=== PATIENT | female | born 1955 | race Caucasian/White ===

== ENCOUNTER → 2017-03-08 12:35 | Outpatient (CLI) | payer BC ==
[2015-02-17 06:28] VITALS: BMI 37.0
[~2017-03-08 12:35] MED LIST: CELEXA40 MG PO; LIPITOR40 MG PO; MAXZIDE 75/501 TAB PO; TOPAMAX50 MG PO
== END | disposition home or self-care (01) ==
LOC: D.CT 12:35
DX: R19.00 Intra-abdominal and pelvic swelling, mass and lump, unspecified site (principal)

== ENCOUNTER → 2017-07-06 08:50 | Outpatient (CLI) | payer BC ==
[2015-02-17 06:28] VITALS: BMI 37.0
--- NOTE | 2017-07-08 11:12 | EC ---
PATIENT:LOLA TURCIOS DATE OF SERVICE: 07/06/17 SEX: F MEDICAL RECORD: [id number] DATE OF : [birth year] LOCATION:D.RT AGE OF PATIENT: 61 ADMISSION DATE: 07/06/17 REFERRING PHYSICIAN: INTERPRETING PHYSICIAN: JULIUS SANDOVAL MD ECHOCARDIOGRAM REPORT ECHO CHARGES 4 ECHO COMPLETE CLINICAL DIAGNOSIS: DYSPNEA ECHOCARDIOGRAPHIC MEASUREMENTS (adult normal given) AC root (d.<3.7cm) 3.0 cm LV Septum d (<1.2 cm> 1.4 cm Valve Excursion 1.8 cm LV Septum (systole) 2.0 cm Left Atria (s.<4.0cm> 3.9 cm LVPW d(<1.2cm) 1.3 cm RV (d.<2.3cm) 2.7 cm LVPW (sytole) 1.9 cm LV diastole(<5.6CM) 3.8 cm MV E-F(>70mm/sec) cm LV systole 2.3 cm LVOT Diameter 2.0 cm MV exc.(>10mm) cm Est.ejection fraction (50-75%) % Pericardial Effusion N DOPPLER: LVIT cm/sec A 84.0 cm/sec E 63.0 cm/sec LA cm/sec RVSP 29.0 mmHg LVOT 150 cm/sec AOP1/2T 341.0m/s Asc. Ao 226 cm/sec RVOT 87.0 cm/sec RA cm/sec PA 118 cm/sec AV Gradient Peak 21.0 mmHg AV Mean 10.2 mmHg AV Area 1.9 cm MV Gradient Peak 3.6 mmHg MV Mean 1.2 mmHg MV Area cm COMMENTS: Solar Mechanical Engineer: 1 REBECCA CANO Alignment Technician: 2 Dr. Aceves TAPE# PACS DATE OF SERVICE: 07/07/2017 Echocardiogram FINDINGS: 1. Left ventricular chamber size is within normal limits. Left ventricular systolic function is normal. Overall ejection fraction estimated at 60%. 2. Left atrium, right atrium, and right ventricular chamber sizes are within normal limits. 3. Valvular structures have normal structure and motion. ECHOCARDIOGRAM REPORT [id number] LOLA TURCIOS 4. Doppler interrogation only reveals trace aortic insufficiency, trace tricuspid regurgitation, neither of which are hemodynamically significant. 5. No evidence of pericardial effusion or left ventricular thrombus. TRANSINT:[id number] Voice Confirmation ID: [id number] DOCUMENT ID: [id number] JULIUS SANDOVAL MD at 1112 CC: [id number] DICTATION DATE: 07/07/17 1248 RESTUARANT CREW WORKER: 07/07/171912 DEP CLI 07/06/17 [facility] [address] [id number]
== END | disposition home or self-care (01) ==
LOC: D.RT 08:50
DX: R06.00 Dyspnea, unspecified (principal)

== ENCOUNTER → 2017-09-09 08:59 | Outpatient (CLI) | payer BC ==
[2015-02-17 06:28] VITALS: BMI 37.0
[2017-09-09 09:43] LABS: ALBUMIN 3.7 g/dL (3.4-5.0); BILIRUBIN - DIRECT 0.03 mg/dL (0.00-0.30); BILIRUBIN - INDIRECT 0.35 mg/dL (0.00-1.00); BILIRUBIN - TOTAL 0.38 mg/dL (0.2-1.3); PROTEIN - SERUM 7.4 g/dL (6.4-8.2)
== END | disposition home or self-care (01) ==
LOC: D.US 08:59
PROVIDERS: Internal Medicine Gastroenterology
DX: K76.0 Fatty (change of) liver, not elsewhere classified (principal)

== ENCOUNTER → 2018-08-17 08:57 | Outpatient (CLI) | payer OTHER ==
[2015-02-17 06:28] VITALS: BMI 37.0
[2018-08-17 10:11] LABS: BILIRUBIN - INDIRECT 0.19 mg/dL (0.00-1.00); BILIRUBIN - TOTAL 0.24 mg/dL (0.2-1.3); PROTEIN - SERUM 7.6 g/dL (6.4-8.2)
[2018-08-17 10:23] LABS: BILIRUBIN - DIRECT 0.05 mg/dL (0.00-0.30)
== END | disposition home or self-care (01) ==
LOC: D.US 08:57
PROVIDERS: Internal Medicine Gastroenterology
DX: K76.0 Fatty (change of) liver, not elsewhere classified (principal)

== ENCOUNTER → 2019-01-22 06:03 | Day surgery (SDC) | payer OTHER, MEDICARE ==
[~2019-01-22] VITALS: Ht 162.6 cm; Wt 97.7 kg
[~2019-01-22 06:03] MED LIST changes: +PEPCID AC20 MG PO; +THIAZIDE; +ZETIA10 MG; +ZOCOR40 MG PO
[2019-01-22 07:10] LABS: HEMATOCRIT 43.5 % (36.0-48.0); HEMOGLOBIN 15.1 g/dL (12-16); MCH 30.1 pg (26.0-34.0); MCHC 34.7 g/dL (31.0-37.0); MCV 86.7 fL (80.0-100.0); MEAN PLATELET VOLUME 10.6 fL (7.4-10.4); RBC 5.02 10x6/uL (4.00-5.40); WBC 5.8 10x3/uL (4.8-10.8)
[2019-01-22 07:33] VITALS: BP 139/84; Ht 162.6 cm; Wt 97.7 kg
--- NOTE | 2019-01-24 14:22 | OP ---
PATIENT NAME: LOLA TURCIOS MEDICAL RECORD: [id number] :51 LOCATION:D.[facility] ADMISSION DATE: SURGEON: ERICK GARCIA DO DATE OF OPERATION: 01/22/2019 PROCEDURE: Colonoscopy with polypectomy and biopsies. INDICATIONS FOR PROCEDURE: Family history of colon cancer, personal history of colon polyps, diverticulosis. SCOPE: Olympus video pediatric colonoscope. MEDICATIONS: Propofol 700 mg IV per anesthesia. WITHDRAWAL TIME: 16 minutes. ESTIMATED BLOOD LOSS: Minimal. COMPLICATIONS: None. FINDINGS AND DESCRIPTION OF PROCEDURE: Informed consent was given. The patient was made comfortable with the above medication. After reaching an adequate level of sedation by slow IV push, the patient was placed on her left side. A digital rectal examination was performed and it was normal. The endoscope was then advanced under direct visualization through the rectum to the cecum, confirmed by the presence of the appendiceal orifice and ileocecal valve. The endoscope was slowly withdrawn and mucosa was carefully examined. The prep quality was fair. Difficulty of procedure was moderate. The patient required mild changes in position and left lower quadrant pressure to facilitate passage of the endoscope all the way to the cecum. There were 6 polyps seen on today's examination. Two of these were located in the ascending colon. They were benign appearing and sessile and ranged in size from 3-5 mm in diameter. They were both removed using a hot forceps. In the sigmoid colon, there were four separate benign-appearing polyps, which ranged in size from 3-5 mm in diameter. They were all removed using a hot snare in 1 piece and completely retrieved. In the ascending colon, there appeared to be a subepithelial lesion versus a lipoma. A single cold forceps biopsy was taken from the surface to rule out the presence of adenomatous tissue. There was evidence of mild diverticulosis involving the descending and sigmoid colon. Retroflexion was performed in the rectum with visualization of grade I internal hemorrhoids without active bleeding. The endoscope was withdrawn from the patient. The patient tolerated the procedure well and there were no complications. IMPRESSIONS: 1. Six polyps as described above, removed using a combination of a hot snare and hot forceps. 2. Ascending colon subepithelial lesion versus a lipoma. Biopsies pending. 3. Mild diverticulosis of the descending and sigmoid colon. 4. Internal hemorrhoids without bleeding. PLAN AND RECOMMENDATIONS: 1. Discharge home when recovery parameters are met. 2. Follow up biopsy specimen results. 3. High fiber diet. 4. Continue current medications. OPERATIVE REPORT [id number] LOLA TURCIOS 5. Recall colonoscopy will be dependent on results of biopsies. I anticipate this being 2-3 years. The subepithelial lesion site will need closer followup if there is adenomatous tissue present. TRANSINT:[id number] Voice Confirmation ID: [id number] DOCUMENT ID: [id number] ERICK GARCIA DO at 1422 CC: [id number] DICTATION DATE: 01/22/19913 TOOL LIAISON: 01/22/19 1004 [facility] 01/22/19 [facility] [address] [place] [address]
== END | disposition home or self-care (01) ==
LOC: D.OPS 06:03
PROVIDERS: Anesthesiology; ATTEND Internal Medicine Gastroenterology
DX: K57.30 Diverticulosis of large intestine without perforation or abscess without bleeding (principal); K64.0 First degree hemorrhoids; Z86.010 Personal history of colon polyps; Z80.0 Family history of malignant neoplasm of digestive organs; K63.5 Polyp of colon; D12.2 Benign neoplasm of ascending colon; Z01.812 Encounter for preprocedural laboratory examination

== ENCOUNTER 2019-04-07 21:06 | Inpatient (IN) | payer MEDICARE ==
[~2019-04-07] VITALS: Ht 162.6 cm; Wt 102.1 kg
[2019-04-07 21:36] LABS: HEMATOCRIT 42.8 % (36.0-48.0); HEMOGLOBIN 16.7 g/dL (12-16); MCH 32.8 pg (26.0-34.0); MCV 84.1 fL (80.0-100.0); PLATELET COUNT 149 10x3/uL (130-400); RBC 5.09 10x6/uL (4.00-5.40); RDW 12.9 % (11.5-14.5); WBC 11.1 10x3/uL (4.8-10.8)
[2019-04-07 21:38] LABS: BILIRUBIN - TOTAL 1.21 mg/dL (0.2-1.3); CARBON DIOXIDE 16.1 mmol/L (21.0-32.0); CHLORIDE - SERUM 91 mmol/L (98-107); POTASSIUM - SERUM 3.6 mmol/L (3.5-5.1); SODIUM 125 mmol/L (136-145)
[2019-04-07 21:39] VITALS: BP 149/89
[2019-04-07 21:40] LABS: APTT 31.4 SECONDS (22.8-39.4); INR 0.92 (0.85-1.17); PROTIME 11.9 SECONDS (11.6-15.0)
[2019-04-07 21:41] LABS: ALBUMIN 3.6 g/dL (3.4-5.0); ALKALINE PHOSPHATASE 103 U/L (46-116); ALT (SGPT) 12 U/L (10-68); CALC OSMOLALITY 262 mosm/kg (275-300); CALCIUM 7.1 mg/dL (8.5-10.1); CREATININE - SERUM 0.4 mg/dL (0.6-1.3); GLUCOSE 314 mg/dL (74-106); PROTEIN - SERUM 7.5 g/dL (6.4-8.2); UREA NITROGEN 11 mg/dL (7-18); eGFR NON AFRICAN AMERICAN > 90 mL/min (90-120)
[2019-04-07 21:49] LABS: CKMB 2.8 U/L (0.0-3.6); MAGNESIUM - SERUM 1.8 mg/dL (1.8-2.4)
[2019-04-07 21:52] LABS: LYMPHOCYTES 27 % (15-50); MONOCYTES 4 % (2-11); NEUTROPHILS 69 % (40-80); PLATELET ESTIMATE NORMAL
[2019-04-07 21:53] LABS: CREATINE KINASE 153 UL (21-215); TROPONIN-I < 0.017 ng/mL (0.000-0.060)
--- NOTE | 2019-04-07 22:46 | NUR ---
URINE SPECIMEN SENT TO LAB. OCCULT STOOL OBTAINED, RESULT NEGATIVE.
[2019-04-07 23:00] LABS: APPEARANCE HAZY (CLEAR); COLOR YELLOW (YELLOW); GLUCOSE 1000 mg/dL (NEGATIVE); NITRITE NEGATIVE (NEGATIVE); PROTEIN 2+ mg/dL (NEGATIVE)
[2019-04-07 23:01] LABS: BILIRUBIN NEGATIVE (NEGATIVE); KETONE LARGE mg/dL (NEGATIVE); RED CELLS - URINE 0-5 /hpf (0-5); UROBILINOGEN NORMAL (NORMAL)
[2019-04-07 23:03] VITALS: BP 165/94
--- NOTE | 2019-04-07 23:52 | NUR ---
PT LEFT ED VIA WC FOR CT.
--- NOTE | 2019-04-08 00:49 | NUR ---
PLAN OF CARE DISCUSSED WITH PT AND FAMILY.
--- NOTE | 2019-04-08 01:32 | NUR ---
FSBS 197, HUMULIN REGULAR ORDER CHANGED VERBALLY BY DR AMBROCIO. ORDER CHANGED FROM 15 UNITS SC TO 5 UNITS.
[2019-04-08 01:41] LABS: CHOL - HDL RATIO 16.7 ratio (2.3-4.1); CHOLESTEROL, TOTAL 383 mg/dL (0-200); HDL CHOLESTEROL 23 mg/dL (32-96); TRIGLYCERIDE 4621 mg/dL (30-200)
--- NOTE | 2019-04-08 01:54 | NUR ---
pt arrived to floor by wheelchair, report taken from everardo pruett rn.
[2019-04-08 02:33] VITALS: BP 129/77; BMI 38.7
--- NOTE | 2019-04-08 02:40 | NUR ---
C/O ABDOMINAL PAIN AT 7 WHEN SALES ACCOUNT SPECIALIST SET UP. LATER STATED THE PAIN MEDICATION IS HELPING WITH THE PAIN. ASSESSMENT COMPLETED.
--- NOTE | 2019-04-08 06:16 | NUR ---
PT SITTING UP IN BED WITH EYES OPEN, RR EVEN AND UNLABORED. 196 BLOOD SUGAR TREATED ORDERED PER SLIDING SCALE. PT DENIES FURTHER NEEDS AT THIS TIME. WILL CTM.
--- NOTE | 2019-04-08 07:05 | NUR ---
RECEIVED REPORT FROM [facility]. SHE IS SITTING IN BED ON HER CELL PHONE.CLINIC NURSE INFUSING. IV SITE CLEAR. DENIES ANY CURRENT NEEDS. CL IN REACH.
[2019-04-08 08:31] VITALS: BP 124/70
--- NOTE | 2019-04-08 11:15 | NUR ---
NEW ORDER TO START DILADID MR TEACHER INSTEAD OF MORPHINE DUE TO NAUSEA. SHE DID HAVE DOSE OF ZOFRAN. CL IN REACH RESP EVEN WITHOUT LABOR. AWAKE AND ALERT.
[2019-04-08 12:06] VITALS: BP 129/73
--- NOTE | 2019-04-08 13:26 | MORECARE ---
CASE MANAGEMENT DISCHARGE SUMMARY PATIENT: LOLA TURCIOS UNIT: [id number] ADM DATE: 04/08/19 AGE: 63 : 53 SEX: F ROOM/BED: D.2104 AUTHOR: JUAN PRICE PHYSICIAN: REFERRING PHYSICIAN: MAIKEL RIVERA MD DATE OF SERVICE: 04/08/19 Discharge Plan Patient Name: LOLA TURCIOS [facility] [facility] 1955 Planned Disposition: Home Anticipated Discharge Date: Discharge Date: Expected LOS: Initial Reviewer: ALLI Initial Review Date: 04/08/2019 Generated: 04/08/19 2:26 pm DCPIA - Discharge Planning Initial Assessment Updated by ALLI: Tena Brice on 04/08/19 1:24 pm * Is the patient Alert and Oriented? Yes * How many steps to enter\exit or inside your home? * PCP faro * [facility] * Preadmission Environment Home with Family * ADLs Independent * Equipment CPAP * List name and contact numbers for known caregivers / representatives who currently or will assist patient after discharge: MIKE PTS DAUGHTER * Verbal permission to speak to the caregivers and representatives has been obtained from the patient. Yes * Additional services required to return to the preadmission environment? No * Can the patient safely return to the preadmission environment? Yes * Has this patient been hospitalized within the prior 30 days at any hospital? No Patient Name: LOLA TURCIOS Page [id number] at 1326 All edits/amendments must be made on the electronic document DICTATION DATE: 04/08/19 1325 BUS CLEANER: PRIYA 04/08/19 1325 RPT#: [id number] DC DATE: STATUS: ADM IN [facility] [address] [place] [address] END OF REPORT
--- NOTE | 2019-04-08 13:33 | MORECARE ---
CASE MANAGEMENT DISCHARGE SUMMARY PATIENT: LOLA TURCIOS UNIT: [id number] ADM DATE: 04/08/19 AGE: 63 : 53 SEX: F ROOM/BED: D.2109 AUTHOR: ALBERT,DOC PHYSICIAN: REFERRING PHYSICIAN: MAIKEL RIVERA MD DATE OF SERVICE: 04/08/19 Discharge Plan Patient Name: LOLA TURCIOS Facility: [facility]:[place] : 1955 Planned Disposition: Home Anticipated Discharge Date: Discharge Date: Expected LOS: Initial Reviewer: ALLI Initial Review Date: 04/08/2019 Generated: 04/08/19 2:33 pm Comments DCP- Discharge Planning Updated by [email or web address]: Tena Brice on 04/08/19 12:[address] Patient Name: LOLA TURCIOS Admission Status: ER Accout number: [id number] Admission Date: 04-08-2019 : 1955 Admission Diagnosis: Attending: NICOLE, Current LOS: 1 Anticipated DC Date: Planned Disposition: Home Primary Insurance: [employer] CHOICE PPO MCR ADVANT Discharge Planning Comments: CM SPOKE TO PT AND EDUCATED ON CM ROLE. CMINFORMED PT OF SERVICES AVAILABLE SUCH REHAB, HH , AND DME COMPANIES IF NEEDED. PT HAS CPAP AT HOME THRU [facility]. HER DAUGHTER MIKE ADHIKARI IS A FORMER JAVA APPLICATION DEVELOPER AT THIS HOSPITAL HELP IN HER CARE. PT WILL POSSIBLY NEED NEW DIABETIC SUPPLES AND HELP AT DC. DENIES ANY OTHER NEEDS OR CONCERNS AT THIS TIME. CM WILL CONTINUE TO FOLLOW AND ASSIST. Stonework Supervisor: Tena Brice DCPIA - Discharge Planning Initial Assessment Updated by [email or web address]: Tena Brice on 04/08/19 1:24 pm * Is the patient Alert and Oriented? Yes * How many steps to enter\exit or inside your home? * PCP faro * [facility] * Preadmission Environment Home with Family * ADLs Independent * Equipment CPAP * List name and contact numbers for known caregivers / representatives who currently or will assist patient after discharge: IMKE PTS DAUGHTER * Verbal permission to speak to the caregivers and representatives has been obtained from the patient. Yes * Additional services required to return to the preadmission environment? No * Can the patient safely return to the preadmission environment? Yes * Has this patient been hospitalized within the prior 30 days at any hospital? No Last DP export: 04/08/19 12:26 p Patient Name: LOLA TURCIOS Page [phone] at 1333 All edits/amendments must be made on the electronic document DICTATION DATE: 04/08/191332 PROGRAM DIRECTOR/TRAFFIC DIRECTOR: PRIYA 04/08/19 1333 RPT#: [id number] DC DATE: STATUS: ADM IN [facility] [address] [place] [address] END OF REPORT
[2019-04-08 15:04] VITALS: BP 136/71
--- NOTE | 2019-04-08 18:00 | NUR ---
C/O N/V. SOME CLEAR EMESIS IN BATHROOM. ZOFRAN GIVEN. DAUGHTER AT BEDSIDE. DILADID STRUCTURAL STEEL DETAILER IN USE. TEMP WAS 99.5 WHEN CHECKED. INSULIN GIVEN PER SS ORDERS. CL IN REACH
[2019-04-08 20:00] VITALS: BP 116/70
--- NOTE | 2019-04-08 20:52 | NUR ---
ADMINISTERED ACETAMINOPHEN 650 MG PO FOR PT TEMP OF 102.4
--- NOTE | 2019-04-08 23:41 | NUR ---
TREATED PT BLOOD SUGAR OF 176 ORDERED PER SLIDING SCALE. PT LYING IN BED WITH EYES OPEN, RR EVEN AND UNLABORED. COOL WET TOWEL PROVIDED TO PT TO PLACE ON FOREHEAD. PT DENIES FURTHER NEEDS AT THIS TIME. CALL LIGHT IN REACH. WILL CTM.
[2019-04-09] VITALS: BP 103/67
--- NOTE | 2019-04-09 01:12 | NUR ---
ADMINISTERED ORDERED ACETAMINOPHEN 650 MG PO FOR PT TEMP OF 101.3 F.
--- NOTE | 2019-04-09 02:57 | NUR ---
PT'S TEMP HAS DECREASED TO 98.1 F. ADMINISTERED ORDERED ONDANSETRON IV FOR PT COMPLAINTS OF NAUSEA. DENIES FURTHER NEEDS AT THIS TIME. CALL LIGHT IN REACH. WILL CTM.
[2019-04-09 04:00] VITALS: BP 106/64
--- NOTE | 2019-04-09 04:01 | NUR ---
I have reviewed this patient and I concur with the Shift Assessment completed by the Licensed Practical Nurse today this shift.
[2019-04-09 05:43] LABS: BASOPHILS 0.2 % (0-2); EOSINOPHILS 0.8 % (0-7); HEMATOCRIT 36.8 % (36.0-48.0); IMMATURE GRANULOCYTES 0.3 % (0-5); LYMPHOCYTES 17.7 % (15-50); MCH 29.5 pg (26.0-34.0); MCHC 34.2 g/dL (31.0-37.0); MONOCYTES 9.1 % (2-11); NEUTROPHILS 71.9 % (40-80); RBC 4.27 10x6/uL (4.00-5.40); RDW 13.4 % (11.5-14.5); WBC 9.2 10x3/uL (4.8-10.8)
[2019-04-09 06:12] LABS: HEMOGLOBIN 12.6 g/dL (12-16); MCV 86.2 fL (80.0-100.0); PLATELET COUNT 109 10x3/uL (130-400)
[2019-04-09 06:14] LABS: ALBUMIN 2.9 g/dL (3.4-5.0); ALKALINE PHOSPHATASE 62 U/L (46-116); AMYLASE - SERUM 76 U/L (25-115); BILIRUBIN - TOTAL 0.61 mg/dL (0.2-1.3); CALCIUM 7.9 mg/dL (8.5-10.1); CHLORIDE - SERUM 100 mmol/L (98-107); CREATININE - SERUM 0.5 mg/dL (0.6-1.3); LIPASE 752 U/L (73-393); MAGNESIUM - SERUM 1.6 mg/dL (1.8-2.4); POTASSIUM - SERUM 3.3 mmol/L (3.5-5.1); SODIUM 136 mmol/L (136-145); eGFR NON AFRICAN AMERICAN > 90 mL/min (90-120)
[2019-04-09 06:32] LABS: ALT (SGPT) 23 U/L (10-68); CALC OSMOLALITY 273 mosm/kg (275-300); CARBON DIOXIDE 27.7 mmol/L (21.0-32.0); GLUCOSE 169 mg/dL (74-106); UREA NITROGEN 7 mg/dL (7-18)
--- NOTE | 2019-04-09 07:38 | NUR ---
REPORT RECEIVED. WILL CONTINUE WITH POC. PT CURRENTLY LYING SUPINE. CALL LIGHT W/I REACH. PT IS AAO AND UP AD HERNANDEZ. RR EVEN AND UNLABORED ON 3L 02. NS INFUSING @125ML/HR VIA L.AC PIV. DILUADID ROASTER OPERATOR COMPLETED INFUSION IN SPITE OF 5ML REMAINING IN SYRINGE. PLACED NEW SYRINGE AND WASTED 5ML. DILUADID ROASTER OPERATOR SET TO 0.2MG/Q10MIN/[id number] LOCKOUT. WILL CTM.
[2019-04-09 09:04] VITALS: BP 106/66
[2019-04-09 12:08] VITALS: Ht 162.6 cm; Wt 102.1 kg
--- NOTE | 2019-04-09 17:00 | NUR ---
I have reviewed this patient and I concur with the Shift Assessment completed by the Licensed Practical Nurse today this shift.
[2019-04-09 17:08] VITALS: BP 140/56
[2019-04-09 18:38] VITALS: BP 140/56
--- NOTE | 2019-04-09 19:31 | NUR ---
RECIEVED UP IN BED WITH DTR AT BEDSIDE. ALERT AND ORIENTED AND UP AD HERNANDEZ TO B/R. O2@ 3 LITERS PER N/C IN PLACE. IV TO LEFT AC WITH NS@ 100CC/HR. VOCATIONAL TECHNICAL EDUCATION DIRECTOR WITH DILAUDID IN PLACE. CONT OT MONITOR BLOOD SUGARS. DENIES ANY NEEDS AT THIS TIME.
[2019-04-09 20:00] VITALS: BP 104/64
[2019-04-10] VITALS: BP 116/68
[2019-04-10 04:00] VITALS: BP 119/66
[2019-04-10 06:06] LABS: BASOPHILS 0.1 % (0-2); EOSINOPHILS 0.2 % (0-7); HEMATOCRIT 33.3 % (36.0-48.0); HEMOGLOBIN 11.1 g/dL (12-16); IMMATURE GRANULOCYTES 0.3 % (0-5); LYMPHOCYTES 9.9 % (15-50); MCH 29.1 pg (26.0-34.0); MCHC 33.3 g/dL (31.0-37.0); MCV 87.4 fL (80.0-100.0); MEAN PLATELET VOLUME 10.2 fL (7.4-10.4); MONOCYTES 8.6 % (2-11); NEUTROPHILS 80.9 % (40-80); PLATELET COUNT 106 10x3/uL (130-400); RBC 3.81 10x6/uL (4.00-5.40); RDW 13.4 % (11.5-14.5); WBC 9.2 10x3/uL (4.8-10.8)
[2019-04-10 06:33] LABS: ALBUMIN 2.6 g/dL (3.4-5.0); ALKALINE PHOSPHATASE 55 U/L (46-116); ALT (SGPT) 19 U/L (10-68); BILIRUBIN - TOTAL 0.56 mg/dL (0.2-1.3); CALC OSMOLALITY 270 mosm/kg (275-300); CALCIUM 8.1 mg/dL (8.5-10.1); CARBON DIOXIDE 25.5 mmol/L (21.0-32.0); CHLORIDE - SERUM 99 mmol/L (98-107); CREATININE - SERUM 0.5 mg/dL (0.6-1.3); GLUCOSE 157 mg/dL (74-106); LIPASE 321 U/L (73-393); MAGNESIUM - SERUM 1.7 mg/dL (1.8-2.4); POTASSIUM - SERUM 3.5 mmol/L (3.5-5.1); PROTEIN - SERUM 6.6 g/dL (6.4-8.2); SODIUM 135 mmol/L (136-145); UREA NITROGEN 7 mg/dL (7-18); eGFR NON AFRICAN AMERICAN > 90 mL/min (90-120)
[2019-04-10 06:36] LABS: AMYLASE - SERUM 43 U/L (25-115)
[2019-04-10 08:20] VITALS: BP 98/54
--- NOTE | 2019-04-10 08:23 | NUR ---
ASLEEP AT PRESENT. DILAUDID TELEVISION PRESENTER GOING @0.2 MG. WILL CONTINUE TO MONITOR.
--- NOTE | 2019-04-10 09:38 | NUR ---
LEFT AC IV SITE RED AND LEAKING AROUND SITE, D/C IV WITH CATH TIP INTACT. PLACED 22G RIGHT FOREARM X1 ATTEMPT, FLUSHES AND BLOOD RETURN WITHOUT DIFFICULTY. PT TOLERATED WELL
[2019-04-10 12:31] VITALS: BP 106/68
--- NOTE | 2019-04-10 13:59 | NUR ---
SITTING UP IN CHAIR, FAMILY IN ROOM. DENIES ANY NEEDS OR PAIN. NO SIGNS OF DISTRESS NOTED. CALL LIGHT WITHIN REACH, FALL PRECAUTIONS IN PLACE. WILL CONTINUE TO MONITOR
--- NOTE | 2019-04-10 15:11 | NUR ---
ALL AROUND PRESSER DC AND WASTED. PT RESTING COMFORTABLY.
--- NOTE | 2019-04-10 15:17 | NUR ---
Nutrition educaiton: RDN provided pt with printed handout re: managing high TG with diet. Reviewed handout with pt and answered pts questions. RDN will continue to intruct pt during hospital stay.
[2019-04-10 18:42] VITALS: BP 112/78
--- NOTE | 2019-04-10 19:16 | NUR ---
RECIEVED UP IN BED WITH EYES OPEN AND TV ON. ALERT AND ORIENTED X4. UP AD HERNANDEZ TO B/R. IV TO RIGHT FA WITH NS AT 75CC/HR. RESP EVEN AND UNLABORED. DENIES ANY NEEDS AT THIS TIME.
[2019-04-10 20:00] VITALS: BP 162/75
[2019-04-11] VITALS: BP 109/65
[2019-04-11 04:00] VITALS: BP 117/69
[2019-04-11 06:38] LABS: BASOPHILS 0.1 % (0-2); EOSINOPHILS 0.6 % (0-7); HEMATOCRIT 32.3 % (36.0-48.0); HEMOGLOBIN 10.8 g/dL (12-16); IMMATURE GRANULOCYTES 0.2 % (0-5); LYMPHOCYTES 12.5 % (15-50); MCH 29.4 pg (26.0-34.0); MCHC 33.4 g/dL (31.0-37.0); MEAN PLATELET VOLUME 9.9 fL (7.4-10.4); MONOCYTES 8.4 % (2-11); NEUTROPHILS 78.2 % (40-80); PLATELET COUNT 120 10x3/uL (130-400); RBC 3.67 10x6/uL (4.00-5.40); RDW 13.6 % (11.5-14.5); WBC 8.4 10x3/uL (4.8-10.8)
[2019-04-11 07:34] LABS: ALBUMIN 2.7 g/dL (3.4-5.0); ALKALINE PHOSPHATASE 82 U/L (46-116); AMYLASE - SERUM 35 U/L (25-115); BILIRUBIN - TOTAL 0.36 mg/dL (0.2-1.3); CALCIUM 8.5 mg/dL (8.5-10.1); CARBON DIOXIDE 28.7 mmol/L (21.0-32.0); CHLORIDE - SERUM 101 mmol/L (98-107); CREATININE - SERUM 0.6 mg/dL (0.6-1.3); GLUCOSE 154 mg/dL (74-106); LIPASE 227 U/L (73-393); POTASSIUM - SERUM 3.6 mmol/L (3.5-5.1); PROTEIN - SERUM 6.9 g/dL (6.4-8.2); SODIUM 138 mmol/L (136-145); eGFR NON AFRICAN AMERICAN > 90 mL/min (90-120)
[2019-04-11 07:36] LABS: ALT (SGPT) 31 U/L (10-68); CALC OSMOLALITY 277 mosm/kg (275-300); MAGNESIUM - SERUM 2.3 mg/dL (1.8-2.4); UREA NITROGEN 10 mg/dL (7-18)
[2019-04-11 09:23] VITALS: BP 117/77
[2019-04-11 13:18] VITALS: BP 124/86
--- NOTE | 2019-04-11 13:27 | NUR ---
I have reviewed this patient and I concur with the Shift Assessment completed by the Licensed Practical Nurse today this shift.
[2019-04-11 18:58] VITALS: BP 116/67
--- NOTE | 2019-04-11 19:54 | NUR ---
REPORT RECIEVING AND ROUNDING COMPLETE. PT LAYING IN BED, PT IS A&O X4. PT STATES SHE HAS NO NEEDS AT THIS TIME. CALL LIGHT WITHIN REACH AND BE IN LOWEST POSITION. PT IS SHOWING NO S/SX OF DISTRESS.
[2019-04-11 20:00] VITALS: BP 132/78
[2019-04-12] VITALS (7 sets, daily range): BP systolic 114–149; BP diastolic 52–82
--- NOTE | 2019-04-12 04:01 | NUR ---
I have reviewed this patient and I concur with the Shift Assessment completed by the Licensed Practical Nurse today this shift.
[2019-04-12 05:25] LABS: BASOPHILS 0.1 % (0-2); EOSINOPHILS 1.9 % (0-7); HEMATOCRIT 33.9 % (36.0-48.0); HEMOGLOBIN 11.4 g/dL (12-16); IMMATURE GRANULOCYTES 0.4 % (0-5); LYMPHOCYTES 17.4 % (15-50); MCH 29.6 pg (26.0-34.0); MCHC 33.6 g/dL (31.0-37.0); MCV 88.1 fL (80.0-100.0); MEAN PLATELET VOLUME 9.8 fL (7.4-10.4); MONOCYTES 11.8 % (2-11); NEUTROPHILS 68.4 % (40-80); RBC 3.85 10x6/uL (4.00-5.40); RDW 13.4 % (11.5-14.5)
[2019-04-12 05:41] LABS: ALBUMIN 2.8 g/dL (3.4-5.0); ALKALINE PHOSPHATASE 83 U/L (46-116); ALT (SGPT) 32 U/L (10-68); BILIRUBIN - TOTAL 0.41 mg/dL (0.2-1.3); CALC OSMOLALITY 275 mosm/kg (275-300); CALCIUM 8.8 mg/dL (8.5-10.1); CARBON DIOXIDE 30.5 mmol/L (21.0-32.0); CHLORIDE - SERUM 98 mmol/L (98-107); CREATININE - SERUM 0.7 mg/dL (0.6-1.3); GLUCOSE 163 mg/dL (74-106); LIPASE 276 U/L (73-393); MAGNESIUM - SERUM 1.8 mg/dL (1.8-2.4); POTASSIUM - SERUM 3.2 mmol/L (3.5-5.1); PROTEIN - SERUM 7.1 g/dL (6.4-8.2); SODIUM 136 mmol/L (136-145); UREA NITROGEN 12 mg/dL (7-18); eGFR NON AFRICAN AMERICAN 89 mL/min (90-120)
[2019-04-12 05:42] LABS: AMYLASE - SERUM 47 U/L (25-115)
[2019-04-12 05:53] LABS: PLATELET COUNT 158 10x3/uL (130-400)
--- NOTE | 2019-04-12 07:30 | NUR ---
A/A/OX4. DENIES ANY PAIN AT PRESENT TIME AND NO REQUESTS VOICED. ASSESSMENT COMPLETED AND WILL CONTINUE POC. CALL LIGHT IN REACH.
--- NOTE | 2019-04-12 10:35 | NUR ---
STATES NO RESULTS YET FROM PRUNE JUICE GIVEN THIS A.M. GIVEN WARM PRUNE JUICE WITH SPRITE.
--- NOTE | 2019-04-12 15:01 | NUR ---
I have reviewed this patient and I concur with the Shift Assessment completed by the Licensed Practical Nurse today this shift.
--- NOTE | 2019-04-12 17:30 | NUR ---
STILL NO STOOL PASSED TODAY, PER ORDER DR. GREENBERG, GIVEN 1 BOTTLE MAG CITRATE.
--- NOTE | 2019-04-12 19:15 | NUR ---
AWAKE ANSD UP IN CHAIR ON PHONE BED IS LOW AND LOCKED CALL LIGHT IN REACH SKIN WARM AND DRY COMPLETE ASSEEEMENT NOT DONE AT THIS TIME
[2019-04-13 04:03] VITALS: BP 127/74
[2019-04-13 06:34] LABS: BASOPHILS 0.5 % (0-2); EOSINOPHILS 2.3 % (0-7); HEMATOCRIT 33.5 % (36.0-48.0); IMMATURE GRANULOCYTES 0.3 % (0-5); LYMPHOCYTES 32.8 % (15-50); MCH 29.1 pg (26.0-34.0); MCHC 32.8 g/dL (31.0-37.0); MCV 88.6 fL (80.0-100.0); MEAN PLATELET VOLUME 9.8 fL (7.4-10.4); MONOCYTES 11.3 % (2-11); NEUTROPHILS 52.8 % (40-80); PLATELET COUNT 172 10x3/uL (130-400); RBC 3.78 10x6/uL (4.00-5.40); RDW 13.4 % (11.5-14.5); WBC 5.7 10x3/uL (4.8-10.8)
[2019-04-13 06:59] LABS: ALBUMIN 2.6 g/dL (3.4-5.0); ALKALINE PHOSPHATASE 77 U/L (46-116); ALT (SGPT) 30 U/L (10-68); AMYLASE - SERUM 47 U/L (25-115); BILIRUBIN - TOTAL 0.34 mg/dL (0.2-1.3); CALC OSMOLALITY 291 mosm/kg (275-300); CALCIUM 9.2 mg/dL (8.5-10.1); CARBON DIOXIDE 33.4 mmol/L (21.0-32.0); CHLORIDE - SERUM 104 mmol/L (98-107); CREATININE - SERUM 0.6 mg/dL (0.6-1.3); GLUCOSE 146 mg/dL (74-106); LIPASE 262 U/L (73-393); MAGNESIUM - SERUM 2.2 mg/dL (1.8-2.4); POTASSIUM - SERUM 3.7 mmol/L (3.5-5.1); PROTEIN - SERUM 6.7 g/dL (6.4-8.2); SODIUM 145 mmol/L (136-145); UREA NITROGEN 12 mg/dL (7-18); eGFR NON AFRICAN AMERICAN > 90 mL/min (90-120)
--- NOTE | 2019-04-13 07:45 | NUR ---
PT RESTING IN BED, SHIFT ASSESSMENT PERFORMED. DENIES ANY NEEDS AT THIS TIME, WILL CONT TO FOLLOW POC
[2019-04-13 08:54] VITALS: BP 125/65
--- NOTE | 2019-04-13 11:16 | NUR ---
Nutrition Follow Up: Chart reviewed Diet: ADA PO Intake: 75% meal avg BM: 04/11/19 Meds and labs reviewed Rec continue current diet. RD following.
[2019-04-13 12:12] VITALS: BP 135/75
--- NOTE | 2019-04-13 12:30 | NUR ---
PT SITTING IN CHAIR EATING LUNCH, DENIES ANY NEEDS AT THIS TIME, WILL CONT TO FOLLOW POC
[2019-04-13] MEDS ORDERED: LEVEMIR IN100 UNITS/ SC (14:00)
[2019-04-13] MEDS ORDERED: HUMALOG 30100 UNITS/ SC (14:00)
[2019-04-13] MEDS ORDERED: INSTA-GLUCOSE31 GM PO (14:03)
[2019-04-13] MEDS ORDERED: K-DUR20 MEQ PO (14:04)
[2019-04-13] MEDS ORDERED: LASIX40 MG PO (14:04)
[2019-04-13] MEDS ORDERED: TRICOR145 MG PO (14:16)
--- NOTE | 2019-04-13 15:12 | NUR ---
Nutrition Consult: Consult received for ADA diet education. Reviewed ADA diet information, A1C, CHO counting with pt. She appeared overwhelmed when attempting to count carbs; RD encouraged pt to request outpatient diet education for more in depth teaching. She appeared excited about this and said that she would like to attend. RD spoke with nursing regarding this. Written info left with pt and pt was encouraged to contact RD with any questions. Thank you for the consult.
--- NOTE | 2019-04-13 17:00 | NUR ---
DISCHARGE INSTRUCTIONS AND GLUCOMETER/INSULIN ADMINISTRATION REVIEWED WITH PT AND ALL QUESTIONS ANSWERED. PIV REMOVED WITH CATHETER TIP INTACT. DAUGHTER IS ON HER WAY
--- NOTE | 2019-04-13 17:59 | NUR ---
ASSISTED PT TO FRONT OF HOSPITAL VIA WHEELCHAIR WHERE SHE LEFT WITH HER DAUGHTER
--- NOTE | 2019-04-16 09:00 | MORECARE ---
CASE MANAGEMENT DISCHARGE SUMMARY PATIENT: LOLA TURCIOS UNIT: [id number] ADM DATE: 04/08/19 AGE: 63 : 51 SEX: F ROOM/BED: D.210 AUTHOR: ALBERT,DOC PHYSICIAN: REFERRING PHYSICIAN: MAIKEL RIVERA MD DATE OF SERVICE: 04/16/19 Discharge Plan Patient Name: LOLA TURCIOS Facility: [facility]:[place] : 1955 Planned Disposition: Home Anticipated Discharge Date: 04/13/19 Discharge Date: 04/13/2019 Expected LOS: 5 Initial Reviewer: ALLI Initial Review Date: 04/08/2019 Generated: 04/16/19 9:59 am DCP- Discharge Planning Updated by [id number]: Tena Brice on 04/08/19 12:[address] Patient Name: LOLA TURCIOS Admission Status: ER Accout number: [id number] Admission Date: 04-08-2019 : 1955 Admission Diagnosis: Attending: NICOLE, Current LOS: 1 Anticipated DC Date: Planned Disposition: Home Primary Insurance: [employer] CHOICE PPO MCR ADVANT Discharge Planning Comments: CM SPOKE TO PT AND EDUCATED ON CM ROLE. CMINFORMED PT OF SERVICES AVAILABLE SUCH REHAB, HH , AND DME COMPANIES IF NEEDED. PT HAS CPAP AT HOME THRU [facility]. HER DAUGHTER MIKE ADHIKARI IS A FORMER [employer] PURSE SEINER AT THIS HOSPITAL HELP IN HER CARE. PT WILL POSSIBLY NEED NEW DIABETIC SUPPLES AND HELP AT DC. DENIES ANY OTHER NEEDS OR CONCERNS AT THIS TIME. CM WILL CONTINUE TO FOLLOW AND ASSIST. Guillotine Operator: Tena Brice DCPIA - Discharge Planning Initial Assessment Updated by [id number]: Tena Brice on 04/08/19 1:24 pm * Is the patient Alert and Oriented? Yes * How many steps to enter\exit or inside your home? * PCP faro * [facility] * Preadmission Environment Home with Family * ADLs Independent * Equipment CPAP * List name and contact numbers for known caregivers / representatives who currently or will assist patient after discharge: MIKE PTS DAUGHTER * Verbal permission to speak to the caregivers and representatives has been obtained from the patient. Yes * Additional services required to return to the preadmission environment? No * Can the patient safely return to the preadmission environment? Yes * Has this patient been hospitalized within the prior 30 days at any hospital? No Last DP export: 04/08/19 12:33 p Patient Name: LOLA TURCIOS Page [id number] at 0900 All edits/amendments must be made on the electronic document DICTATION DATE: 04/16/19858 PROCED TECH: PRIYA 04/16/1961 RPT#: [id number] DC DATE:04/13/19 STATUS: DIS IN [facility] [address] [place] [address] END OF REPORT
== END 2019-04-13 17:59 | disposition home or self-care (01) | DRG 439 ==
LOC: D.ER 21:06 → D.M2 04-08 00:57
PROVIDERS: Emergency Medicine; ADMIT Family Medicine; ATTEND Family Medicine
DX: K85.90 Acute pancreatitis without necrosis or infection, unspecified (principal); F17.213 Nicotine dependence, cigarettes, with withdrawal; E87.1 Hypo-osmolality and hyponatremia; J98.11 Atelectasis; E78.1 Pure hyperglyceridemia; I10 Essential (primary) hypertension; E78.5 Hyperlipidemia, unspecified; R73.9 Hyperglycemia, unspecified; G47.33 Obstructive sleep apnea (adult) (pediatric); F32.9 Major depressive disorder, single episode, unspecified; K21.9 Gastro-esophageal reflux disease without esophagitis; K57.90 Diverticulosis of intestine, part unspecified, without perforation or abscess without bleeding; D17.71 Benign lipomatous neoplasm of kidney

== ENCOUNTER 2019-06-08 09:00 | Outpatient (CLI) | payer MEDICARE ==
[2019-04-09 12:08] VITALS: BMI 38.6
[~2019-06-08 09:00] MED LIST changes: +HUMALOG 30100 UNITS/ SC; +INSTA-GLUCOSE31 GM PO; +K-DUR20 MEQ PO; +LASIX40 MG PO; +LEVEMIR IN100 UNITS/ SC; +TRICOR145 MG PO
== END 2019-06-08 10:00 | disposition home or self-care (01) ==
LOC: D.MAMMO 09:00
PROVIDERS: ATTEND Family Medicine
DX: Z12.31 Encounter for screening mammogram for malignant neoplasm of breast (principal)

== ENCOUNTER → 2019-11-14 21:31 | Outpatient (CLI) | payer MEDICARE ==
[2019-04-09 12:08] VITALS: BMI 38.6
== END | disposition home or self-care (01) ==
LOC: D.MAMMO 14:00
PROVIDERS: ATTEND Family Medicine
DX: R92.2 Inconclusive mammogram (principal)

== ENCOUNTER → 2020-07-01 14:00 | Outpatient (CLI) | payer MEDICARE ==
[2019-04-09 12:08] VITALS: BMI 38.6
== END | disposition home or self-care (01) ==
LOC: D.MAMMO 14:00
PROVIDERS: ATTEND Family Medicine
DX: R92.2 Inconclusive mammogram (principal)